=== PATIENT | male | born 1960 | race Caucasian/White ===

== ENCOUNTER 2022-07-29 15:02 | Emergency (ER) | payer OTHER, SELFPAY ==
--- NOTE | ~2022-07-29 | CT_ITS ---
EXAMINATION: CTA LE RT DATE: 07/29/2022 17:07 INDICATION: Pain, decreased pulses. TECHNIQUE: Computed tomographic angiography (CTA) of the right lower extremities was performed with 1 50 mL Omnipaque-350 intravenous contrast. Automated exposure control and iterative reconstruction rolly hnique were employed. The dose-length product was 514.04 mGy-cm. COMPARISON: None. FINDINGS: PELVIC VASCULATURE: Calcified and noncalcified distal aortic plaque. Moderate stenosis of the origin of the right common iliac artery. Occlusion of the distal right common iliac and external iliac arteries. Severe stenosis with minimal flow in the right internal iliac artery. Reconstitution of flow in the proximal right f emoral artery. RIGHT LOWER EXTREMITY VASCULATURE: Occlusion of the distal right superficial femoral artery. Reconstitution of flow at the level of the right popliteal artery. The right trifurcation is preserved. Flow noted within the peroneal artery to the level of the ankle joint. Flow present in the narrowed caliber posterior tibial and anterior tib ial arteries below the level of the ankle. ADDITIONAL FINDINGS: Incidental note of focal severe stenosis in the left external iliac artery. Enlarged prostate. Multif ocal hypodensities in the right inferior renal pole. IMPRESSION: 1. Occluded distal right common iliac and external iliac arteries with reconstitution of flow in the proximal right femoral artery. 2. Occluded distal superficial femoral artery with reconstitution of flow at the level of the poplite al artery. 3. Two vessel flow below the level of the right ankle. 4. Multiple right renal infarcts. Reviewed, dictated and finalized at location K. STACK PYTHON DEVELOPER IMPRESSION: 1. Occluded distal right common iliac and external iliac arteries with reconst itution of flow in the proximal right femoral artery. 2. Occluded distal superficial femoral artery with reconstitution of flow at th e level of the popliteal artery. 3. Two vessel flow below the level of the right ankle. 4. Multiple right renal infarcts.
[2022-07-29 15:12] VITALS: BP 126/69; PULSE 101; RESP 16; TEMP 36.6; O2SAT 100
[2022-07-29 16:30] LABS: Basophils Absolute Auto 0.1 K/mm3 (0.0-0.1); Basophils Percent Auto 0.4 % (0.2-1.2); Eosinophils Absolute Auto 0.1 K/mm3 (0-0.3); Eosinophils Percent Auto 0.4 % (0-4.4); Hematocrit 42.3 % (42.0-52.0); Hemoglobin 13.9 g/dL (14.0-18.0); Immature Granulocyte Absolute 0.07 K/mm3 (0.00-0.031); Immature Granulocyte Percent A 0.6 % (0-0.5); Lymphocytes Absolute Auto 2.17 K/mm3 (0.9-3.2); Lymphocytes Percent Auto 17.7 % (18.3-44.2); Mean Corpuscular HGB Conc 32.9 g/dl (32-36); Mean Corpuscular Hemoglobin 30.4 pg (26-34); Mean Corpuscular Volume 92.6 fl (80-100); Mean Platelet Volume 9.2 fl (7.4-10.4); Monocytes Absolute Auto 1.2 K/mm3 (0.1-0.6); Monocytes Percent Auto 9.4 % (2.6-8.5); Neutrophils Absolute Auto 8.8 K/mm3 (1.3-6.7); Neutrophils Percent Auto 71.5 % (45.5-73.1); Platelet Count Result 344 k/mm3 (150-375); Red Blood Count 4.57 M/mm3 (4.6-6.20); Red Cell Distribution Width 13.7 % (11.5-14.5); White Blood Count 12.3 K/mm3 (4.5-10.0)
[2022-07-29 16:40] LABS: Alanine Aminotransferase 65 U/L (6-50); Albumin Level 4.5 g/dL (3.5-5.1); Alkaline Phosphatase 98 U/L (38-126); Anion Gap 9 mmol/L (8-16); Aspartate Amino Transferase 45 U/L (17-59); Bilirubin,Total 0.4 mg/dL (0.2-1.3); Blood Urea Nitrogen 22 mg/dL (9-20); Calcium 9.4 mg/dL (8.4-10.2); Carbon Dioxide 24 mmol/L (22-30); Chloride 105 mmol/L (98-107); Estimated CRCL calculation 41 ml/min; Estimated Glomerular Filt Rate 51; Glucose 101 mg/dL (65-110); Partial Thromboplastin Time 27.3 SECONDS (22.3-36.8); Potassium 4.2 mmol/L (3.4-5.0); Prothrombin Time 13.1 Seconds (11.1-14.7); Sodium 138 mmol/L (137-145)
--- NOTE | 2022-07-29 17:38 | ED.LOWEXIN ---
HPI - Extremity Injury (Lower) General Chief Complaint: Extremity Injury, Lower Stated Complaint: Right Foot Pain Time Seen by Provider: 07/29/22 15:40 History of Present Illness HPI Narrative: Patient is a 61-year-old male who presents ER with pain in his right lester and foot. Sudden onset prior to arrival while he is at a local bookstore. Intense pain for approximately 45 minutes. Currently 08/08. No aggravating or alleviating factors. Denies any chest pain chest pressure. No nausea or vomiting. He did feel like his foot was numb and burning while this was occurring. Related Data Allergies Allergy/AdvReac Type Severity Reaction Status Date / Time No Known Allergies Allergy Verified 07/29/22 15:14 Review of Systems Review of Systems: All systems reviewed & are unremarkable except as noted in HPI and below Constitutional: Constitutional: Denies chills, Denies fatigue and Denies fever(s) ENT: Denies nasal congestion and Denies sore throat Cardiovascular: Cardiovascular: Denies chest pain, Denies rapid heart rate and Denies radiating jaw, neck or arm pain Respiratory: Respiratory: Denies cough and Denies dyspnea Gastrointestinal: Gastrointestinal: Denies abdominal pain, Denies nausea and Denies vomiting Musculoskeletal: Musculoskeletal: Denies arthralgias and Denies joint swelling Comments: Right foot and lester pain. 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 HEAD: Normocephalic, atraumatic. ENT: Mucous membranes moist. CHEST: Clear to auscultation. No respiratory distress. HEART: Regular rate and rhythm. Difficulty dopplering pulses to the posterior tibial and dorsalis pedis vessels right foot. Dopplerable PT/DP in LLE. ABDOMEN: Soft, nontender, nondistended. EXTREMITIES: Normal range of motion. No edema. Right foot cool with no nailbeds. Missing fifth digit on the right foot due to amputation. SKIN: Warm, dry, no rash. NEURO: Alert and oriented x3. PSYCH: Normal mood and affect. Course Course Emergency Course: Patient with recurrence of pain after CTA. Still unable to Doppler pulses. Discussed case with vascular at [facility] but there are no beds. Discussed with [facility] ER and patient has been accepted by Dr. Enriquez, transfer line had spoken with vascular surgery [place] gotten acceptance. Patient being started on heparin. Vital Signs Vital signs: Vital Signs Temperature 97.9 F 07/29/22 15:12 Pulse Rate 101 H 07/29/22 15:12 Respiratory Rate 16 07/29/22 15:12 Blood Pressure 126/69 07/29/22 15:12 Pulse Oximetry 100 07/29/22 15:12 Oxygen Delivery Room Air 07/29/22 15:12 Temperature 97.9 F 07/29/22 15:12 Pulse Rate 101 H 07/29/22 15:12 Respiratory Rate 16 07/29/22 15:12 Blood Pressure 126/69 07/29/22 15:12 Pulse Oximetry 100 07/29/22 15:12 Oxygen Delivery Room Air 07/29/22 15:12 MDM - Extremity Injury (Lower) Lab Data 07/29/22 16:23 07/29/22 16:23 Labs: Lab Results 07/29/22 07/29/22 07/29/22 Range/Units 16:23 16:23 16:23 WBC 12.3 H (4.5-10.0) K/mm3 RBC 4.57 L (4.6-6.20) M/mm3 Hgb 13.9 L (14.0-18.0) g/dL Hct 42.3 (42.0-52.0) % MCV 92.6 (80-100) fl MCH 30.4 (26-34) pg MCHC 32.9 (32-36) g/dl RDW 13.7 (11.5-14.5) % Plt Count 344 (150-375) k/mm3 MPV 9.2 (7.4-10.4) fl Immature Gran % (Auto) 0.6 H (0-0.5) % Neut % (Auto) 71.5
--- NOTE | 2022-07-29 18:38 | ECG_ITS ---
Measurements Intervals Lissie Rate: 121 P: 74 VT: 153 QRS: 79 QRSD: 89 T: 79 QT: 297 QTc: 422 Interpretive Statements SINUS TACHYCARDIA BORDERLINE R WAVE PROGRESSION, ANTERIOR LEADS NONSPECIFIC T-WAVE ABNORMALITY- INF/LAT LEADS BASELINE WANDER- II, III ABNORMAL ECG NO PREVIOUS ECG AVAILABLE FOR COMPARISON Electronically Signed On 07-30-2022 7:45:26 GRINDING AND SPRAYING SUPERVISOR by Sahil Ocampo D.O.
[2022-07-29 19:00] VITALS: BP 110/74; RESP 16
[2022-07-29] MEDS: HEPARIN SODIUM 5,000 UNITS/ML VIAL 5000 UNITS IV PUSH (19:09)
[2022-07-29] MEDS: HEPARIN SOD/D5W 100 UNITS/ML 25,000 UNITS/250 ML BAG 11 UNITS IV CONT (19:11)
== END 2022-07-29 19:42 | disposition short-term general hospital (02) ==
PROVIDERS: Emergency Provider Emergency Medicine; PCP Internal Medicine
DX: I74.5 Embolism and thrombosis of iliac artery (principal); I74.3 Embolism and thrombosis of arteries of the lower extremities; N28.0 Ischemia and infarction of kidney; I10 Essential (primary) hypertension; Z87.891 Personal history of nicotine dependence; R00.0 Tachycardia, unspecified; R94.31 Abnormal electrocardiogram [ECG] [EKG]
CPT/HCPCS: 36415; 73706; 80053; 85025; 85610; 85730; 93005; 96365; 99285; J1644; Q9967

== ENCOUNTER 2025-07-16 13:33 | Outpatient (CLI) | payer MEDICARE, SELFPAY ==
--- NOTE | ~2025-07-16 | PE_ITS ---
EXAMINATION: PET_PETPSMAST_PT DATE: 07/16/2025 15:44 INDICATION: Prostate cancer TECHNIQUE: 4.891 mCi of Illucix Ga-[id number]) was administered i.v. Low dose computed tomography (CT) images were acquired from the base of the brain to the base of the brain to the proximal thighs for attenuation correction and anatomic localization. Positron emission tomography (PET) images were acquired in the same distribution beginning 66 minutes after injection. Images including fused PET/CT images were reconstructed in axial, coronal, and sagittal planes. Automated exposure control technique was employed. The dose-length product was 822.44mGy-cm. COMPARISON: None FINDINGS: Head/neck: Typical pattern of symmetric physiologic increased activity in the lacrimal, parotid and submandibular glands as well as along the mucosa of the nasal and oral cavities, pharynx and hypopharynx. No pathologically enlarged cervical lymphadenopathy or suspicious foci of increased uptake in the visualized head or neck. Chest: Mild upper lung predominant emphysema with moderate biapical pleural-parenchymal scarring. Mild discoid atelectasis at the basilar segments of the bilateral lower lobes. No suspicious pulmonary nodules, pneumonia, pulmonary edema or pleural effusion. Heart size is normal. No pericardial effusion. Thoracic aorta is normal in caliber. No pathologically enlarged or PSMA avid thoracic lymphadenopathy. Abdomen/pelvis/proximal thighs: Physiologic renal accumulation and excretion of activity in the kidneys, bladder and along portions of ureters. Prostatomegaly measuring 4.7 x 4.0 cm with heterogeneous abnormal PSMA activity with the 3 most intense foci with maximal SUV of 14.3 on the right, 12.9 anteriorly and 14.4 on the left consistent with primary prostate cancer. Photopenic defects associated with a couple low- attenuation left renal cysts the largest measuring 2.3 cm. Normal degree and slightly heterogenous pattern of increased uptake throughout the liver and spleen without radiologic correlate or dominant PSMA avid lesion. The gallbladder, pancreas and bilateral adrenal glands are normal. Moderate uptake scattered throughout the bowels with typical duodenal and proximal jejunal predominance and without radiologic correlate, also likely physiologic. Appendix is normal. Scattered diverticula along the descending and sigmoid colon without adjacent from trace stranding to suggest diverticulitis. Endovascular stenting of the bilateral common and external iliac arteries. There are couple subcentimeter bilateral obturator lymph nodes positioned posterior to the common iliac veins with mild uptake with maximal SUV of 4.5 on the left and 3.5 on the right which are suspicious for metastatic disease. No other abnormal foci of inc reased uptake or pathologically enlarged lymphadenopathy in the abdomen, pelvis or proximal thighs. Musculoskeletal: Small focus of mild uptake with maximal SUV of 2.3 cm with a linear focus of sclerosis extending across the lateral right seventh rib. Second subcentimeter focus of increased uptake with maximal SUV of 5.5 without radiologic correlate on CT at the right atrium. No other suspicious lytic, blastic or abnormally PSMA avid bone lesions. IMPRESSION: 1. Prominent heterogeneous activity throughout the enlarged prostate consistent with primary prostate cancer. 2. Abnormal increased activity within a couple normal-sized subcentimeter bilateral obturator lymph nodes suspicious for early metastatic disease. 3. Small focus of mild bone uptake in the right atrium and the right ninth rib the former without radiologic correlate, and the latter with small linear sclerosis which are also suspicious for early osseous metastatic disease. Reviewed, dictated and finalized at location A. [employer] IMPRESSION: 1. Prominent heterogeneous activity throughout the enlarged prostate consistent with primary prostate cancer. 2. Abnormal increased activity within a couple normal-sized subcentimeter bilat eral obturator lymph nodes suspicious for early metastatic disease. 3. Small focus of mild bone uptake in the right atrium and the right ninth rib the former without radiologic correlate, and the latter with small linear scler osis which are also suspicious for early osseous metastatic disease.
--- OUTSIDE RECORDS SUMMARY | 2025-07-16 14:32 | XMS_ITS | Encounter Summary ---
Author Organization [facility] Healthcare Address [address] [place] [address] Care Team Providers Care Funeral Service Manager Name Role Phone Owen Rodgers MD Primary Care Provider Sondra Barrios MD Unavailable Matty Badillo MD Unavailable [phone] Encounter Details Date Type Department Care Team (Late st Contact Info) Description 07/29/2022 Documentation [facility] [address] [place] [address] Lee Talley RN Social History Tobacco Use Types Packs/Day Years Used Date Smoking Tobacco: Former Cigarettes Alcohol Use Standard Drinks/Week Comments Not Asked 0 (1 standard drink = 0.6 oz pur e alcohol) former Sex and Gender Information Value Date Recorded Sex Assigned at Not on file 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 Pt must be afebrile for 24 hr without antipyretics AND clinically improving. IP to discuss recovering patient. VY Guillen CIC 07/29/2022 07/29/2022 08/17/2022 3:05 AM LABORER ELECTROPLATING COVID: Recovered Comment:Added based on recent COVID infection. 08/17/2022 08/22/2022 11/15/2022 3:05 AM C DT COVID: Suspected 08/13/2023 08/13/2023 08/13/2023 6:16 AM LABORER ELECTROPLATING documented as of this encounter Care Teams Funeral Service Manager Relationship Specialty Start Date End Date Owen Rodgers MD PCP - General 08/25/20 Sondra Barrios MD Consulting Physician Vascular Surgery 08/07/22 Matty Badillo MD [id number] [place] [address] Surgeon Vascular Surgery 08/16/23 documented as of this encounter
--- OUTSIDE RECORDS SUMMARY | 2025-07-16 14:32 | XMS_ITS | Encounter Summary ---
Author Organization [facility] Address [address] [place] [address] Phone Care Team Providers Care Teacher Education Instructor Name Role Phone Owen Rodgers MD Primary Care Provider [phone] Sondra Barrios MD Unavailable Matty Badillo MD Unavailable Encounter Details Date Type Department Care Team (Late st Contact Info) Description 05/27/2025 Results Follow-Up [facility] Medicine Cardiology [address] [facility] Advanced Medicine 8th [place] [address] [place] [address] Elder Guzman MD [address] [facility] [address] [place] [address] ECG 12 lead Social History Tobacco Use Types Packs/Day Years Used Date Smoking Tobacco: Former Cigarettes Smokeless Tobacco: Never Alcohol Use Standard Drinks/Week Comments Not Asked 0 (1 standard drink = 0.6 oz pur e alcohol) former OASIS D0700: Social Isolation Answer Da te Recorded Frequency of experiencing loneliness or isolatio n Never 08/25/2023 [facility] Utilities Answer Date Recorded In the past 12 months has [employer] electric, gas, oil, or water company threatened to shut off services in your home? No 11/18/2024 Social Connection and Isolation Panel Answer Date Recorded In a typical week, how many times do you talk on the phone with family, friends, or neighbors? More than three times a week 11/18/2024 How often do you get togethe r with friends or relatives? More than three times a week 11/18/2024 How often do you attend chur ch or rastafari services? Never 11/18/2024 Do you belong to any clubs o r organizations such as latter-day groups, unions, fraternal or athletic groups, or school groups? No 11/18/2024 How often do you attend meet ings of the clubs or organizations you belong to? Never 11/18/2024 Are you , , di vorced, , never , or living with a partner? 11/18/2024 AUDIT-C Answer Date Recorded Q1: How often do you have a drink containing alc ohol? Monthly or less 11/06/2024 Q2: How many drinks containi ng alcohol do you have on a typical day when you are drinking? 1 or 2 11/06/2024 Q3: How often do you have si x or more drinks on one occasion? Never 11/06/2024 Overall Financial Resource Strain (CARDIA) Answe r Date Recorded How hard is it for you to pa y for the very basics like food, housing, medical care, and heating? Not hard at all 11/18/2024 Hunger Vital Sign Answer Date Recorded Within the past 12 months, y ou worried that your food would run out before you got the money to buy more. Never true 11/19/19 25 Within the past 12 months, t he food you bought just didn't last and you didn't have money to get more. Never true 11/18/2024 PRAPARE - Transportation Answer Date Re corded In the past 12 months, has l ack of transportation kept you from medical appointments or from getting medications? No 10/29 In the past 12 months, has l ack of transportation kept you from meetings, work, or from getting things needed for daily living? No 11/18/2024 Housing Stability Vital Sign Answer Santi e Recorded In the last 12 months, was t here a time when you were not able to pay the mortgage or rent on time? No 11/18/2024 In the past 12 months, how m any times have you moved where you were living? 0 11/18/2024 At any time in the past 12 m [facility], were you homeless or living in a assisted (including now)? No 11/18/2024 Personal Safety Answer Date Recorded Have you ever been in or are you currently in a harmful physical or emotional relationship or is someone making you feel afraid or unsafe? 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
--- OUTSIDE RECORDS SUMMARY | 2025-07-16 14:33 | XMS_ITS | Clinical Summary ---
Author Organization [facility] Address [address] [place] [address] Care Team Providers Care Inclusion Specialist Name Role Phone Owen Rodgers MD Primary Care Provider Sondra Barrois MD Unavailable Laith Tapia MD Unavailable Allergies Active Allergy Reactions Criticality Noted Date Comments Shellfish Containing Products Itching Low 2020 Medications acetaminophen (TYLENOL) 500 mg tablet Take 1 tablet (500 mg total) by mouth every 6 (six) hours as needed for pain 30 tablet 4 Active clopidogreL (PLAVIX) 75 mg tablet Take 1 tablet (75 mg total) by mouth every morning Active apixaban (ELIQUIS) 5 mg tablet Take 1 tablet (5 mg total) by mouth 2 (two) times a day Active metoprolol XL (TOPROL-XL) 25 mg extended release tablet Take 1 tablet (25 mg total) by mouth 2 (two) times a day 60 tablet 5 Active oxyCODONE (ROXICODONE) 10 mg tabletIndicatio ns:Pain Take 1 tablet (10 mg total) by mouth every 6 (six) hours as needed for pain 12 tablet 5 Active Additional Information Patient not taking.Reported on 05/27/2025 gabapentin (NEURONTIN) 600 mg tablet Take 1 tablet (600 mg total) by mouth 3 (three) times a day 90 tablet Active cyclobenzaprine (FLEXERIL) 5 mg tablet Take 1 tablet (5 mg total) by mouth 3 (three) times a day as needed for muscle spasms 30 tablet 1 5 Active Additional Information Patient not taking.Reported on 05/27/2025 atorvastatin (LIPITOR) 80 mg tablet TAKE 1 TABLET(80 MG) BY MOUTH DAILY 90 tablet 3 5 Active olmesartan (BENICAR) 5 mg tablet Take 1 tablet every day by oral route. Active aspirin 325 mg tablet Take 1 tablet (325 mg total) by mouth daily Active Active Problems Problem Noted Date Diagnosed Date Encounter for surgical after care following surgery on the circulatory system 06/19/2025 Syncope and collapse 05/27/2025 Amputation of right great toe 02/03/2025 Right foot pain 11/18/2024 Assessment & Plan (11/18/2024 4:56 PM CDT): Acute post-op pain. Will increase oxycodone and dilaudid as the current regimen is not covering his breakthrough pain. Right shoulder pain 11/17/2024 Hypotension 11/17/2024 Ulcer of toe of right foot, with necrosis of bon e 11/15/2024 Assessment & Plan (12/04/2024 3:35 AM CDT): Surgically resolved. Assessment & Plan (11/18/2024 4:54 PM CDT): POD #1 S/P partial amputation right hallux. Dry gauze and Kerlix reapplied R foot. This dressing may be left intact unless soiled or loose until his first pot-op visit as out-patient. Continue PT/OT. Use care with heel strike shoe as this could be a fall hazard and creates forefoot shear if used improperly. I have post-op visits already arranged with him. Pain of right great toe 10/23/2024 Assessment & Plan (12/23/2024 10:55 AM CDT): Monitor phantom pains in the right hallux. Could consider gabapentin or duloxetine for this. Assessment & Plan (12/04/2024 3:35 AM CDT): Continue pain medication p.r.n.. Assessment & Plan (10/23/2024 10:16 AM CDT): Improved present but should get even better once revascularization is complete. Osteomyelitis of great toe of right foot 025 Assessment & Plan (12/23/2024 10:55 AM CDT): All sutures removed right hallux. Okay to bathe and shower starting tomorrow. Monitor for any complications. Assessment & Plan (12/04/2024 3:35 AM CDT): Sutures left intact x2 more weeks. Dry dressing reapplied. He may change the dressing becomes wet or soiled. Use surgical shoe when standing or walking. Monitor for any complications. Assessment & Plan (10/23/2024 10:18 AM CDT): The plan will be for partial amputation right hallux in the weeks after his revascularization. We will monitor the site for any soft tissue infection in the meantime. CKD (chronic kidney disease) 03/27/2024 Assessment & Plan (03/27/2024 8:03 AM CDT): CKD3. Cr 1.38 on admit. Likely near baseline. - monitor Vascular occlusion 03/26/2024 Assessment & Plan (03/27/2024 9:14 AM CDT): s/p R FEA with bilateral kissing iliac stents, bilateral external iliac stents and RLE fasciotomies 07/30/22 (Dr. Barrios) c/b recurrent R TELEGRAPH OFFICE MANAGER occlusion and result ALI s/p RLE groin cutdown, thrombectomy, patch angioplasty, above knee popliteal cutdown and thrombectomy 07/30/23 (Dr. Tapia) on Plavix and Eliquis presenting to the ED after being noted to have a R SFA stent occlusion on outpatient non-invasive testing. - CTAIF showing occluded R SFA stent - continue ASA. - stop Heparin gtt. Holding Plavix and Eliquis. Resume. - Q4 hr NV checks - Veing mapping - Pain control - Plan dc home today after vein mapping. No intervention planned at this time. F/u with Dr. Tapia as outpatient. History of tobacco use 01/29/2024 History of deep vein thrombosis 01/29/2024 S/P insertion of iliac artery stent 01/29/2024 Overview (01/29/2024): 07/30/2022: R FEA with bilateral kissing iliac stents, bilateral external iliac stents and RLE fasciotomies (Dr. Barrios) Paroxysmal atrial fibrillation 2023 Assessment & Plan (2023 2:48 PM CDT): Long history of paroxysmal atrial fibrillation. MCT noted PAF with episodes of RVR and sinus tachycardia with an average heart rate of 136. His Olmesartan was therefore decreased and Metoprolol increased for hopes of better heart rate control. Today he reports significant improvement in his symptoms but still with fast resting heart rate at times and occasional palpitations. Noted to be in a fast regular rhythm today upon auscultation. Of note, he had a preserved LVEF on TTE from 07/2023. Increase metoprolol XL to 100 mg in the am and 50 mg in the pm. Decrease Olmesartan to 5 mg daily for more BP room for BB up titration. He will keep a BP and HR diary and return in 2 weeks. He should continue Eliquis. Denies any bleeding. Pneumothorax 08/14/2023 Assessment & Plan (08/15/2023 11:19 AM MARINE EXTENSION AGENT): #left pneumothorax Most likely in the setting of traumatic rib fracture, reports he fell around Given as was short of breath since. - Thoracic surgery was consulted in ED. -08/13 CTA w small to moderate L pneumothorax. S/p CT placement in ED - on RA - maintain SpO2 >92% -CT to water seal. Repeat CXR w/o pneumothorax - Chest tube pulled 08/15, f/u 1700 chest x-ray Assessment & Plan (08/15/2023 11:04 AM MARINE EXTENSION AGENT): S/p left 8Fr Thal quick placement in ER on 08/13. - No air leak following OR with Vascular Surgery; lung expanded on CXR - Thoracic Surgery to remove chest tube this morning - Will need a 2 view chest xray 4 hours after removal to monitor for re- accumulation Atrial fibrillation with RVR 08/13/2023 Assessment & Plan (03/27/2024 9:14 AM CDT): Dx in 1970s. Home regimen: toprol XL, Eliquis - continue metoprolol - Holding eliquis. Stop heparin drip an resume eliquis. Assessment & Plan (09/17/2023 4:08 PM MARINE EXTENSION AGENT): Long history of paroxysmal atrial fibrillation. Reports episodes of afib about 3 times a week in the middle of the night that are self limiting. He is in sinus tachycardia today upon examination. Reports his heart rate is always fast when he comes to visits and better controlled at home. Discussed increasing metoprolol today for better heart rate control and hopes of less breakthrough afib. Patient would like to wear a holter first and assess burden before making any changes. Discussed that we may need to decrease his Olmesartan dose to provide more blood pressure room to increase metoprolol. He was agreeable to this if Holter noted afib and fast baseline heart rate. He should continue Eliquis. Denies any bleeding. Assessment & Plan (08/15/2023 11:00 AM MARINE EXTENSION AGENT): Presented in afib with RVR. Dx in s, but does not follow with cardiology - Required dilitazem drip, now converted to NSR. - 08/14 cards consulted. Will need outpatient referral for follow up. - recommend metoprolol 12.5 mg BID for rate control - obtain TTE - 08/12 TSH WNL - Heparin gtt with plans to start Eliquis closer to [place]. Dilation of biliary tract 08/23/2022 Overview (08/23/2022): Added automatically from request for surgery [id number] COVID 08/02/2022 Assessment & Plan (08/07/2022 6:49 AM MARINE EXTENSION AGENT): Incidental finding on admission testing, asymptomatic. - Continue iso per protocol Essential hypertension 07/31/2022 Assessment & Plan (03/26/2024 3:18 PM CDT): - VS Q4 hrs and PRN - Continue home metoprolol and olmesartan as able Assessment & Plan (2023 2:45 PM CDT): Well controlled on current regimen. Increase metoprolol XL to 100 mg in the am and 50 mg in the pm for optimal heart rate control. Decrease Olmesartan to 5 mg daily for more BP room for BB up titration. He will keep a BP and HR diary and return in 2 weeks. Assessment & Plan (09/17/2023 4:05 PM MARINE EXTENSION AGENT): Well controlled on current regimen. Continue olmesartan and metoprolol XL. May need to decrease olmesartan for more blood pressure room for higher BB dose for management of afib/tachycardia. Assessment & Plan (08/07/2022 6:48 AM MARINE EXTENSION AGENT): - Cont home Norvasc, losartan and HCTZ. BP well controlled on this regimen Pancreatic mass 07/31/2022 Assessment & Plan (08/07/2022 6:48 AM MARINE EXTENSION AGENT): CT (07/29) showed dilated common bile duct 1.3 cm and dilation of pancreatic duct 6 mm main pancreatic duct with abrupt narrowing at the level of the ampulla, suggesting a possible axillary mass. CA19-9 22.9 (07/30/22) - Biliary following, appreciate recs: - MRCP (07/31) - Mild dilatation of the common bile duct and pancreatic duct, with area of transition of the CBD at the ampulla without clear underlying lesion or stone. Findings may represent sequela of ampullary stenosis or a benign stricture due to prior pancreatitis. Rec ERCP. - Biliary said they can arrange OP, they just need to know when anticoagulation can be held Anemia 07/31/2022 Assessment & Plan (08/07/2022 6:49 AM MARINE EXTENSION AGENT): Anemia 2/2 to vascular surgery. No blood products given intra-op, no pressors, and no signs of bleeding. - Daily CBC - Transfuse if Hgb<7, keep active type and screen. Femoral artery occlusion, right 07/29/2022 Assessment & Plan (08/15/2023 10:56 AM MARINE EXTENSION AGENT): Hx of R FEA with bilateral kissing iliac stents, bilateral external iliac stents and RLE fasciotomies 07/30/22 (Dr. Barrios). Taking ASA and eliquis 5mg BID at home. Presented to ED 08/13 with new onset pain starting at 0300. CTA demonstrated occlusion of proximal R TELEGRAPH OFFICE MANAGER. - 08/13 OR for R groin cutdown, thrombectomy, patch angioplasty, above knee popliteal cutdown and thrombectomy, RLE angiogram. - hep gtt restarted. Cards rec transitioning to eliquis when able - s/p plavix load, continue plavix daily and home statin. - TTF 08/15. - Continue PT/OT. Assessment & Plan (08/07/2022 6:48 AM MARINE EXTENSION AGENT): Developed acute onset right lower extremity pain on 07/29/2022, presented to OSH ED where CT was notable for femoral thrombus. Started on heparin gtt and transferred to [facility] ED were CTA showed thrombus originating in the distal infrarenal abdominal aorta which extends into the right common iliac artery and into the right external and internal iliac arteries. Admitted to ICU. - 07/30/2022 OR for embolectomy of Rt EIA, kissing iliac stent, Rt EIA stent and angioplasty, embolectomy of the right common femoral artery, 4 compartment fasciotomies, femoral endarterectomy and patch angioplasty of the right common femoral artery. - Continue Plavix. Switched eliquis to therapeutic lovenox on 08/03. - provided patient with Eliquis coupon on 08/03. - 08/05 OR with ACCS for fasciotomy closure -Island dressing on both incisions, ACCS removed on 08/06 - Echo completed while in ICU for embolic work up and notable for PFO, LEV neg fot DVT - Continue PT/OT, NV checks. - Continue Provena to groin. - Pain well controlled, increased axel on 08/07. - Patient tolerating diet without issue - DVT Ppx lovenox - Cont plavix and statin PAD (peripheral artery disease) 07/29/2022 Assessment & Plan (12/23/2024 10:56 AM CDT): Recommend walking program for exercise and collateral circulation. Follow up with Dr. Justino casper. Assessment & Plan (12/04/2024 3:34 AM CDT): Status post revascularization. Assessment & Plan (11/18/2024 4:54 PM CDT): Management per vascular surgery. Assessment & Plan (10/23/2024 10:15 AM CDT): He is awaiting revascularization of the right lower extremity. Once this is completed I will get him scheduled for partial amputation of the right hallux. Assessment & Plan (2023 2:47 PM CDT): RLE ALI s/p R FEA with bilateral kissing iliac stents, bilateral external iliac stents and RLE fasciotomies 07/30/22. Denies any claudication. Currently not taking atorvastatin and going to be running out of Plavix soon. Refill Atorvastatin and Plavix. Continue walking. Continue follow up with vascular surgery. 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 Right hallux osteomyelitis 10/30/2024 0 12/04/2024 Ulcer of toe of right foot 10/17/2024 0 12/04/2024 Assessment & Plan (10/23/2024 10:15 AM CDT): No debridement indicated today. Silver alginate and gauze dressing reapplied. Continue daily dressings as per my instructions. Monitor for any exacerbation of the wound or signs of soft tissue infection. Encounters Date Type Department Care Team Description 06/19/2025 11:45 AM MARINE EXTENSION AGENT Office Visit [facility] Medicine Vascular Surgery [facility] Medical Office Building [address] [place] [address] Melissa Gan NP Encounter for surgical aftercare following surgery on the circulatory system (Primary Dx) 06/19/2025 11:00 AM MARINE EXTENSION AGENT Ancillary Procedure [facility] Vascular Lab Vascular Surgery [address] [place] [address] [address] [place] [address] Femoral artery occlusion, right; Encounter for surgical aftercare following surgery on the circulatory system 05/27/2025 11:45 AM CDT Office Visit [facility] Cardiology [address] [place] [address] Advanced Medicine [address]th [place] [address] [place] [address] Elder Guzman MD Atrial fibrillation with RVR (HCC) (Primary Dx); Syncope and collapse 05/27/2025 Results Follow-Up [facility] Cardiology [address] [place] [address] Medicine 8th [place] [address] [place] [address] Elder Guzman MD ECG 12 lead 05/20/2025 Documentation [facility] Medicine Scheduling [address] [place] [id number] Darion Roa IM DOC from Last 3 Months Surgical History Surgery Date Site/Laterality Comments MD UNLISTED PROCEDURE PALATE UVULA Uvuloplasty - (Added by TW Conv) MD TONSILLECTOMY PRIMARY/SECONDARY <AGE 12 Tonsillectomy - (Added by TW Conv) BILATERAL TEMPOROMANDIBULAR JOINT ARTHROPLASTY Bilateral THROMBECTOMY / EMBOLECTOMY FEMORAL ARTERY 08/13/2023 Right Femoral Embolectomy/ Thrombectomy Medical History Medical History Date Comments Personal history of other di seases of the nervous system and sense organs History of sleep apnea - (Added by TW Conv) Hypertension Pancreatic mass DVT (deep venous thrombosis) sergey ateral legs and groin Family History Medical History Relation Name Comments No Known Problems Father No Known Problems Mother Migraines Other 1 Migraine Headac he - 2 children, father (Added by TW Conv) Cancer Other 2 Reported A Hist ory Of Cancer - dad had intestinal cancer and (P) uncle with leukemia (Added by TW Conv) Stroke Other 3 Cerebral Artery Occlusion With Cerebral Infarction - PGF (Added by TW Conv) Relation Name Status Comments Father Mother Other 1 Other 2 Other 3 Social History Tobacco Use Types Packs/Day Years Used Date Smoking Tobacco: Former Cigarettes Smokeless Tobacco: Never Alcohol Use Standard Drinks/Week Comments Not Asked 0 (1 standard drink = 0.6 oz pur e alcohol) former OASIS D0700: Social Isolation Answer Da te Recorded Frequency of experiencing loneliness or isolatio n Never 08/25/2023 [facility] Utilities Answer Date Recorded In the past 12 months has th e electric, gas, oil, or water Badge threatened to shut off services in your [...] often do you attend chur ch or islam services? Never 11/18/2024 Do you belong to any clubs o r organizations such as baptist groups, unions, fraternal or athletic groups, or [...] any time in the past [address] [facility], were you homeless or living in a assisted (including now)? No 11/18/2024 Personal Safety Answer Date Recorded Have you ever been in or are you currently in a harmful physical or emotional relationship or is someone making you feel afraid or unsafe? Denies 11/14/2024 Sex and Gender Information Value Date Recorded Sex Assigned at Not on file Legal Sex Male 2:05 AM MARINE EXTENSION AGENT Gender Identity Not on file Sexual Orientation Not on file Last Filed Vital Signs Vital Sign Reading Time Taken Comments Blood Pressure 132/85 06/19/2025 11:14 AM MARINE EXTENSION AGENT Pulse 80 06/19/2025 11:14 AM MARINE EXTENSION AGENT Temperature 37 C (98.6 F) 12/23/2024 10:37 AM CDT Respiratory Rate 18 11/21/2024 4:08 AM CDT Oxygen Saturation 94% 06/19/2025 11:14 AM MARINE EXTENSION AGENT Inhaled Oxygen Concentration - - Weight 76.7 kg (169 lb) 06/19/2025 11:14 AM MARINE EXTENSION AGENT Height 182.9 cm (6') 06/19/2025 11:14 AM MARINE EXTENSION AGENT Body Mass Index 22.92 06/19/2025 11:14 AM MARINE EXTENSION AGENT Plan of Treatment Health Maintenance Due Date Last Done Comments Colon Cancer Screening-Colonoscopy 1960 Depression Screening 1960 Hepatitis C Screening 1960 Prostate Cancer Screening-PSA 1960 Hepatitis B Screening 1976 Pneumococcal vaccine 65+ (1 of 2 - PCV) 1977 Zoster Vaccine (1 of 2) 2008 Well Visit 65+ 11/20/2023 Influenza Vaccine (#1) 2025 Fall Risk Assessment 11/21/2025 11/21/2024, 08/25/19 21 DTaP/Tdap/Td Vaccine (2 - Td or Tdap) 02/25/2035 02/25/2025, 02/25/2025 Abdominal Aortic Aneurysm (A AA) Screen Completed 10/14/2024, 03/26/2024, 08/13/2023, Additional history exists Medical Devices Implanted Type Area Rubber Tubing Splicer Device Identifier Shelf Expiration Date Model / Serial / Lot [employer] Patch Vascuguard 0.88cm [id number] - [id number] Implanted:Qty: 1 on 08/13/2023 by Laith Tapia MD at [facility] Graft Right: Femoral [employer] [id number] 03/13/2024 [id number] / / [id number] [employer] Perclose 6fr Vascular Closure 77424-87 - [id number] Implanted:Qty: 1 on 07/30/2022 by Sondra Barrios MD at [facility] Other - see comments Right: Groin [employer] [id number] 04/28/2024 96711-1 3 / [id number] [employer] Stent Endoprosthesis 59mm 9mm 13mm 8fr [employer]ahn 135cm Balloon Expandable Guidewire [id number] - [id number] - [id number] Implanted:Qty: 1 on 07/30/2022 by Sondra Barrios MD at [facility] Stent Right: Iliac [employer] [id number] 04/02/2025 [id number] / [id number] / [employer] Stent Endoprosthesis 39mm 9mm 13mm 8fr [employer]ahn 135cm [id number] - [id number] - [id number] Implanted:Qty: 1 on 07/30/2022 by Sondra Barrios MD at [facility] Stent Left: Iliac [employer] [id number] 05/06/2025 [id number] / [id number] / Med[employer] Protege Gps Exprt Od9 Mm Odsec.079 In L80 Mm L80 Cm Otw Delivery System Self Expand Low Profile Large Diameter Stent Biliary Nitinol Accepts .035 In Guidewire 6 Fr Introducer Sheath 7.5-8.5 Mm Lumen [id number] - [id number] Implanted:Qty: 1 on 07/30/2022 by Sondra Barrios MD at [facility] Stent Left: Iliac [employer] [id number] 09/19/2024 SERB65 - -80-8 0 / / [id number] Description:Left common exte rnal iliac [employer] Protege Gps Exprt 9mm .079in 40mm 80cm Otw Delivery System Self Hnyh00-01-16-19 - [id number] Implanted:Qty: 1 on 07/30/2022 by Sondra Barrios MD at [facility] Stent Left: Iliac [employer] [id number] 02/12/2024 SERB65 - -40-8 0 / / [id number] Description:Left common exte rnal iliac [employer] Protege Gps Exprt Od9 Mm Odsec.079 In L80 Mm L80 Cm Otw Delivery System Self Expand Low Profile Large Diameter Stent Biliary Nitinol Accepts .035 In Guidewire 6 Fr Introducer Sheath 7.5-8.5 Mm Lumen Ytyi27-48-41-17 - [id number] Implanted:Qty: 1 on 07/30/2022 by Sondra Barrios MD at [facility] Stent Right: Iliac [employer] [id number] 12/04/2024 SERB6 5- -80-8 0 / / [id number] Description:Right common ext ernal iliac [employer] Protege Gps Exprt 9mm .079in 40mm 80cm Otw Delivery System Self Adlk17-27-42-77 - [id number] Implanted:Qty: 1 on 07/30/2022 by Sondra Barrios MD at [facility] Stent Right: Iliac [employer] [id number] 05/17/2025 SERB6 5- 09-40-8 0 / / [id number] Description:Right common ext ernal iliac [employer] Everflex 6mm 200mm 120cm Self Expand Delivery Catheter System Dcg74-51-884-671 - [id number] Implanted:Qty: 1 on 08/13/2023 by Laith Tapia MD at [facility] Stent Right: Superficial Femoral Artery [employer] [id number] 10/31/2025 PRB35-0 6-200-1 20 / / [id number] [employer] Everflex 6mm 200mm 120cm Self Expand Delivery Catheter System Dax83-43-827-929 - [id number] Implanted:Qty: 1 on 08/13/2023 by Laith Tapia MD at [facility] Stent Right: Superficial Femoral Artery [employer] [id number] 12/13/2025 PRB35-0 6-200-1 20 / / [id number] [employer] Vascu-Guard 8x.8cm Peripheral Patch Vascular Bovine Pericardium Vg-0108n - [id number] Implanted:Qty: 1 on 07/30/2022 by Sondra Barrios MD at [facility] Right: Groin [employer] [id number] 03/08/2027 VG-0108 N / / [id number] [employer] Graft Patch Patch Vascular Repair 0.8x8cm 0.8x8cm Pfp0.8x8 - Sna - [id number] Implanted:Qty: 1 on 11/14/2024 by Laith Tapia MD at [facility] Right: Groin [employer] 04/20/2026 PFP0.8 X 8 / NA / [id number] Procedures Procedure Name Priority Date/Time Associated Diagnosis Comments US ARTERIAL DUPLEX LOWER EXTREMITY RIGHT LIMITED Schedule Routine, Read Routine (OP Routine) 06/19/2025 11:21 AM MARINE EXTENSION AGENT Femoral artery occlusion, right Encounter for surgical aftercare following surgery on the circulatory system US ARTERIAL DOPPLER LOWER EXTREMITY BILATERAL Schedule Routine, Read Routine (OP Routine) 06/19/2025 11:21 AM MARINE EXTENSION AGENT Femoral artery occlusion, right Encounter for surgical aftercare following surgery on the circulatory system ECG 12-LEAD Routine 05/27/2025 11:38 AM CDT Atrial fibrillation with RVR (HCC) CTA ABDOMINAL AORTA AND BILATERAL ILIOFEMORAL RUNOFF Schedule Routine, Read Routine (OP Routine) 10/14/2024 3:55 PM CDT Femoral artery occlusion, right Preoperative examination from Last 3 Months or Most Recently Relevant to Health Maintenance Results * US Arterial Duplex Lower Extremity Right Limited (06/19/2025 11:21 AM MARINE EXTENSION AGENT) Anatomical Region Laterality Modality Vascular Right Ultrasound 06/19/2025 10:4 3 AM MARINE EXTENSION AGENT Narrative 06/19/2025 3:34 PM MARINE EXTENSION AGENT [facility] - Department of Vascular Surgery, Vascular Laboratory [address] [place] [address] Lower Extremity Arterial Duplex - Bypass Graft Report Patient Name: IAIN OETRO : 1960 Study Date: 06/19/2025 10:43:54 AM Sex: M Tech: ELISA Location: [facility] Provider: LAITH TAPIA Quality: Adequate Order Provider: LAITH TAPIA PROCEDURES: Arterial Report: Right Common Femoral - BK Popliteal Bypass Graft. INDICATIONS: I70.201 Unspecified atherosclerosis of [place] arteries of extremities, right leg and Z48.812 Encounter for surgical aftercare following surgery on the circulatory system. MEASUREMENTS: Right Value Units Rt Inflow Artery 23 cm/s Rt Proximal Anastomosis 189 cm/s Rt Proximal Graft 66 cm/s Rt Mid Graft 72 cm/s Rt Distal Graft 49 cm/s Rt Distal Anastomosis 57 cm/s Rt Outflow Artery 53 cm/s Right Value Units FINDINGS: Performing Netbackup Administrator: Melissa Simon RVT. Right Leg: The inflow waveform is multiphasic. The proximal anastomosis waveform is multiphasic. The proximal graft waveform is multiphasic. The mid graft waveform is multiphasic. The distal graft waveform is multiphasic. The distal anastomosis waveform is multiphasic. The outflow waveform is multiphasic. CONCLUSIONS: 1. Duplex imaging of the right lower extremity bypass graft reveals a patent graft with no flow limiting lesions identified. Flow velocities as measured above. See Ankle/Brachial Index report. HISTORY: 11/17/2024 Partial Amputation Right Hallux (R) 11/14/24 Right iliofemoral thromboembolectomy Right profunda femoral embolectomy Right profunda to profunda bypass Right iliofemoral patch angioplasty Right greater saphenous vein harvest Right common femoral to below-knee popliteal artery bypass with reversed right greater saphenous vein Placement of incisional wound VAC measuring 13 x 3 x 1 cm. PREVIOUS STUDIES: Previous study on 12/17/2024 (Patent right lower extremity bypass graft with a 50-75% stenosis at the proximal graft level). DISCLAIMER: The study images and the final report will be retained in the patient chart by the Vascular Laboratory for the legally required time period. This chart constitutes the legal record of any testing performed. ATTESTATION: I have reviewed and interpreted the pertinent images and measurements of this study. I attest to the conclusions in the final report that is provided above. Electronically Signed By: Monster Hall MD [facility] [phone] 06/19/2025 2:29:45 PM MARINE EXTENSION AGENT Procedure Note Monster Hall MD - 06/19/2025 [facility] - Department of Vascular Surgery,Vascular Laboratory [address] [place] [id number] Lower Extremity Arterial Duplex - Bypass Graft Report Patient Name: IAIN OTERO : 1960 Study Date: 06/19/2025 10:43:54 AM Sex: M Tech: ELISA Location: [facility] Provider: LAITH TAPIA Quality: Adequate Order Provider: LAITH TAPIA PROCEDURES: Arterial Report: Right Common Femoral - BK Popliteal Bypass Graft. INDICATIONS: I70.201 Unspecified atherosclerosis of [place] arteries of extremities,right leg and Z48.812 [facility] MEASUREMENTS: Right Value Units Rt Inflow Artery 23 cm/s Rt Proximal Anastomosis 189 cm/s Rt Proximal Graft 66 cm/s Rt Mid Graft 72 cm/s Rt Distal Graft 49 cm/s Rt Distal Anastomosis 57 cm/s Rt Outflow Artery 53 cm/s Right Value Units FINDINGS: Performing Netbackup Administrator: Melissa Simon RVT. Right Leg: The inflow waveform is multiphasic. The proximal anastomosis waveform ismultiphasic. The proximal graft waveform is multiphasic. The mid graft waveform ismultiphasic. The distal graft waveform is multiphasic. The distal anastomosis waveform ismultiphasic. The outflow waveform is multiphasic. CONCLUSIONS: 1. Duplex imaging of the right lower extremity bypass graft reveals apatent graft with no flow limiting lesions identified. Flow velocities as measured above.See Ankle/Brachial Index report. HISTORY: 11/17/2024 Partial Amputation Right Hallux (R) 11/14/24 Right iliofemoral thromboembolectomy Right profunda femoral embolectomy Right profunda to profunda bypass Right iliofemoral patch angioplasty Right greater saphenous vein harvest Right common femoral to below-knee popliteal artery bypass with reversedright greater saphenous vein Placement of incisional wound VAC measuring 13 x 3 x 1 cm. PREVIOUS STUDIES: Previous study on 12/17/2024 (Patent right lower extremity bypass graftwith a 50- 75% stenosis at the proximal graft level). DISCLAIMER: The study images and the final report will be retained in the patientchart by the Vascular Laboratory for the legally required time period. This chartconstitutes the legal record of any testing performed. ATTESTATION: I have reviewed and interpreted the pertinent images and measurements ofthis study. I attest to the conclusions in the final report that is provided above. Electronically Signed By: Monster Hall MD [facility] [phone] 06/19/2025 2:29:45 PM MARINE EXTENSION AGENT Laith Tapia MD [facility] US PROCEDURES Final Re sult * US Arterial Doppler Lower Extremity Bilateral (06/19/2025 11:21 AM MARINE EXTENSION AGENT) Anatomical Region Laterality Modality Vascular Bilateral Ultrasound 06/19/2025 10:4 5 AM MARINE EXTENSION AGENT Narrative 06/19/2025 3:34 PM MARINE EXTENSION AGENT [facility] - Department of Vascular Surgery, Vascular Laboratory [address] [place] [address] Lower Extremity Arterial Doppler Report Patient Name: IAIN OTERO : 1960 Study Date: 06/19/2025 10:45:00 AM Sex: M Tech: Melissa Simon RVT Location: [facility] Provider: LAITH TAPIA Quality: Adequate Order Provider: LAITH TAPIA PROCEDURES: Arterial Report: Bilateral lower extremity arterial Doppler exam at rest. INDICATIONS: I70.201 Unspecified atherosclerosis of [place] arteries of extremities, right leg and Z48.812 Encounter for surgical aftercare following surgery on the circulatory system. MEASUREMENTS: Right Value Units Left Value Units Rt Brachial Pressure 106 mmHg Lt Brachial Pressure 111 mmHg Rt SOLIDS CONTROL TECHNICIAN Pressure 118 mmHg Lt SOLIDS CONTROL TECHNICIAN Pressure 64 mmHg Rt DPA Pressure 118 mmHg Lt DPA Pressure 66 mmHg Rt 1st Digit Pressure 69 mmHg Lt 1st Digit Pressure 27 mmHg Rt PT AUGUSTINE Resting 1.06 Lt PT AUGUSTINE Resting 0.58 Rt AT AUGUSTINE Resting 1.06 Lt AT AUGUSTINE Resting 0.59 Rt Digit/Arm Index 0.62 Lt Digit/Arm Index 0.24 Right Value Units Left Value Units FINDINGS: Performing Netbackup Administrator: Melissa Simon RVT. Left All Levels: The left common femoral, popliteal, posterior tibial and anterior tibial artery waveforms are monophasic. Right Common Femoral Artery Analysis: The common femoral artery waveform is multiphasic. Right Popliteal Artery Analysis: Popliteal artery waveform is not assessed due to h/o bypass graft. Right Posterior Tibial Artery Analysis: The posterior tibial waveform is multiphasic. Right Anterior Tibial Artery Analysis: The anterior tibial waveform is multiphasic. Right Digits: Normal right digit pressure and waveform. Left Digits: The left digit waveform is dampened. CONCLUSIONS: 1. The above listed right Ankle/Brachial Index at rest is within normal limits (for reference, normal resting AUGUSTINE is 0.90 - 1.4; AUGUSTINE >1.4 due to non-compressible arteries is not diagnostic). 2. Right Digit/Arm Index is within normal limits (for reference, normal DUSTIN is >0.6). 3. The above listed left Ankle/Brachial Index at rest is consistent with moderate peripheral arterial disease - claudication, (for reference, claudication range is 0.50 -0.89). 4. Left Digit/Arm Index is abnormal (for reference, abnormal DUSTIN is <0.6). 5. There is evidence of left leg arterial insufficiency at the level of aorta- iliac, common femoral (inflow) arteries and femoral-popliteal arteries. HISTORY: 11/17/2024 Partial Amputation Right Hallux (R) 11/14/24 Right iliofemoral thromboembolectomy Right profunda femoral embolectomy Right profunda to profunda bypass Right iliofemoral patch angioplasty Right greater saphenous vein harvest Right common femoral to below-knee popliteal artery bypass with reversed right greater saphenous vein Placement of incisional wound VAC measuring 13 x 3 x 1 cm - PREVIOUS STUDIES: Previous study on 12/17/2024 (Rt >1.0, Lt 0.67). DISCLAIMER: The study images and the final report will be retained in the patient chart by the Vascular Laboratory for the legally required time period. This chart constitutes the legal record of any testing performed. ATTESTATION: I have reviewed and interpreted the pertinent images and measurements of this study. I attest to the conclusions in the final report that is provided above. Electronically Signed By: Monster Hall MD [facility] [phone] 06/19/2025 2:29:22 PM MARINE EXTENSION AGENT Procedure Note Monster Hall MD - 06/19/2025 [facility] - Department of Vascular Surgery,Vascular Laboratory [address] [place] [address] Lower Extremity Arterial Doppler Report Patient Name: IAIN OTERO : 1960 Study Date: 06/19/2025 10:45:00 AM Sex: M Tech: Melissa Simon RVT Location: [facility] Provider: LAITH TAPIA Quality: Adequate Order Provider: LAITH TAPIA PROCEDURES: Arterial Report: Bilateral lower extremity arterial Doppler exam at rest. INDICATIONS: I70.201 Unspecified atherosclerosis of [place] arteries of extremities,right leg and Z48.812 Encounter for surgical aftercare following surgery on thecirculatory system. MEASUREMENTS: Right Value Units Left Value Units Rt Brachial Pressure 106 mmHg Lt Brachial Pressure 111 mmHg Rt SOLIDS CONTROL TECHNICIAN Pressure 118 mmHg Lt SOLIDS CONTROL TECHNICIAN Pressure 64 mmHg Rt DPA Pressure 118 mmHg Lt DPA Pressure 66 mmHg Rt 1st Digit Pressure 69 mmHg Lt 1st Digit Pressure 27 mmHg Rt PT AUGUSTINE Resting 1.06 Lt PT AUGUSTINE Resting 0.58 Rt AT AUGUSTINE Resting 1.06 Lt AT AUGUSTINE Resting 0.59 Rt Digit/Arm Index 0.62 Lt Digit/Arm Index 0.24 Right Value Units Left Value Units FINDINGS: Performing Netbackup Administrator: Melissa Simon RVT. Left All Levels: The left common femoral, popliteal, posterior tibial and anterior tibialartery waveforms are monophasic. Right Common Femoral Artery Analysis: The common femoral artery waveform is multiphasic. Right Popliteal Artery Analysis: Popliteal artery waveform is not assessed due to h/o bypass graft. Right Posterior Tibial Artery Analysis: The posterior tibial waveform is multiphasic. Right Anterior Tibial Artery Analysis: The anterior tibial waveform is multiphasic. Right Digits: Normal right digit pressure and waveform. Left Digits: The left digit waveform is dampened. CONCLUSIONS: 1. The above listed right Ankle/Brachial Index at rest is within normallimits (for reference, normal resting AUGUSTINE is 0.90 - 1.4; AUGUSTINE >1.4 due tonon-compressible arteries is not diagnostic). 2. Right Digit/Arm Index is within normal limits (for reference, normalDAI is >0.6). 3. The above listed left Ankle/Brachial Index at rest is consistent withmoderate peripheral arterial disease - claudication, (for reference, claudicationrange is 0.50 -0.89). 4. Left Digit/Arm Index is abnormal (for reference, abnormal DUSTIN is<0.6). 5. There is evidence of left leg arterial insufficiency at the level ofaorta- iliac, common femoral (inflow) arteries and femoral-popliteal arteries. HISTORY: 11/17/2024 Partial Amputation Right Hallux (R) 11/14/24 Right iliofemoral thromboembolectomy Right profunda femoral embolectomy Right profunda to profunda bypass Right iliofemoral patch angioplasty Right greater saphenous vein harvest Right common femoral to below-knee popliteal artery bypass with reversedright greater saphenous vein Placement of incisional wound VAC measuring 13 x 3 x 1 cm - PREVIOUS STUDIES: Previous study on 12/17/2024 (Rt >1.0, Lt 0.67). DISCLAIMER: The study images and the final report will be retained in the patientchart by the Vascular Laboratory for the legally required time period. This chartconstitutes the legal record of any testing performed. ATTESTATION: I have reviewed and interpreted the pertinent images and measurements ofthis study. I attest to the conclusions in the final report that is provided above. Electronically Signed By: Monster Hall MD [facility] [phone] 06/19/2025 2:29:22 PM MARINE EXTENSION AGENT Laith Tapia MD IMG US PROCEDURES Final Re sult * ECG 12 lead (05/27/2025 11:38 AM CDT) Elder Guzman MD ECG ORDERABLES Edit ed Result - Final * CTA Abdominal Aorta And Bilateral Iliofemoral Runoff (10/14/2024 3:55 PM CDT) Anatomical Region Laterality Modality Body Bilateral Computed Tomogra phy 10/15/2024 10:3 5 AM CDT Impressions 10/15/2024 11:19 AM CDT 1. Right lower extremity: Extension of the right femoral artery occlusion in its distal segment. Flow reconstitution through collaterals in the right profunda artery. Unchanged occlusion of the [place] right superficial femoral and occluded segment with reconstitution at the popliteal. Three-vessel runoff. 2. Left lower extremity: Occlusion of the distal left superficial femoral artery with reconstitution at the level of popliteal. Three-vessel runoff. Dictated by: Franca Don MD The radiology attending physician has personally reviewed this study, and had reviewed and/or edited this written report and agrees with it. Electronically signed by: David Richardson M.D. Narrative 10/15/2024 11:19 AM CDT EXAMINATION: CT ANGIOGRAPHY OF THE ABDOMEN, PELVIS, AND LOWER EXTREMITIES WITH CONTRAST HISTORY: 63-year-old with occluded right superficial femoral artery stent TECHNIQUE: CT angiography of the abdomen, pelvis, and lower extremities was performed following the uneventful intravenous administration of 115 ml Optiray-350. Vascular 3D images were generated on a dedicated workstation and also reviewed. COMPARISON: CT on 03/18/2024 FINDINGS: VASCULAR FINDINGS: Abdominal Aorta and Branches: Celiac axis: no significant stenosis SMA: no significant stenosis REUBEN: no significant stenosis Right renal vessels: no significant stenosis Left renal vessels: no significant stenosis Infrarenal aorta: no significant stenosis. No aneurysm. Pelvic Vessels: R. Common iliac artery: Stented and patent R. External iliac artery: Stented and patent R. Internal iliac artery: Severe multifocal stenosis proximally with short segment occlusion and reconstitution distally L. Common iliac artery: Stented and patent L. External iliac artery: Stented and patent L. Internal iliac artery: Up to severe multifocal stenosis. Right Lower Extremity: R. Common femoral artery: Patent in the proximal portion. Occlusion in the distal segment. Flow reconstitution at the bifurcation R. Profunda femoris artery: Reconstitution through collaterals R. Superficial femoral artery: Unchanged occlusion of the [place] artery with unchanged occluded proximal stent. Thready reconstitution at the level of popliteal R. Popliteal artery: Thready but patent R. Anterior tibial artery: no significant stenosis R. Tibioperoneal trunk: no significant stenosis R. Posterior tibial artery: no significant stenosis R. Peroneal artery: Patent to ankle R. Dorsalis pedis artery: no significant stenosis R. Plantar artery: no significant stenosis Left Lower Extremity: L. Common femoral artery: Mild stenosis L. Profunda femoris artery: Mild multifocal stenosis. L. Superficial femoral artery: Patent proximally with distal occlusion, unchanged. Reconstitution at the level of popliteal L. Popliteal artery: no significant stenosis L. Anterior tibial artery: no significant stenosis L. Tibioperoneal trunk: no significant stenosis L. Posterior tibial artery: no significant stenosis L. Peroneal artery: no significant stenosis L. Dorsalis pedis artery: no significant stenosis L. Plantar artery: no significant stenosis NON-VASCULAR FINDINGS: Scarring in the imaged lung bases. Normal imaged heart. Normal arterial phase appearance of the liver. Normal spleen. Unchanged 1.3 cm left adrenal nodule given long-term stability likely represents a benign adenoma. Normal right adrenal. Normal gallbladder. Mild dilatation of the common bile duct is unchanged. No pancreatic ductal dilatation. Unchanged left renal cysts. No suspicious renal lesions. No hydronephrosis. Normal imaged bowel. Colonic diverticula without diverticulitis. No abdominopelvic adenopathy. Mild prostatomegaly. Bladder is present. No suspicious osseous lesions Procedure Note David Richardson MD - 10/15/2024 EXAMINATION: CT ANGIOGRAPHY OF THE ABDOMEN, PELVIS, AND LOWER EXTREMITIES WITH CONTRAST HISTORY: 63-year-old with occluded right superficial femoral artery stent TECHNIQUE: CT angiography of the abdomen, pelvis, and lower extremities was performed following the uneventful intravenous administration of 115 ml Optiray-350. Vascular 3D images were generated on a dedicated workstation and also reviewed. COMPARISON: CT on 03/18/2024 FINDINGS: VASCULAR FINDINGS: Abdominal Aorta and Branches: Celiac axis: no significant stenosis SMA: no significant stenosis REUBEN: no significant stenosis Right renal vessels: no significant stenosis Left renal vessels: no significant stenosis Infrarenal aorta: no significant stenosis. No aneurysm. Pelvic Vessels: R. Common iliac artery: Stented and patent R. External iliac artery: Stented and patent R. Internal iliac artery: Severe multifocal stenosis proximally with short segment occlusion and reconstitution distally L. Common iliac artery: Stented and patent L. External iliac artery: Stented and patent L. Internal iliac artery: Up to severe multifocal stenosis. Right Lower Extremity: R. Common femoral artery: Patent in the proximal portion. Occlusion in the distal segment. Flow reconstitution at the bifurcation R. Profunda femoris artery: Reconstitution through collaterals R. Superficial femoral artery: Unchanged occlusion of the [place] artery with unchanged occluded proximal stent. Thready reconstitution at the level of popliteal R. Popliteal artery: Thready but patent R. Anterior tibial artery: no significant stenosis R. Tibioperoneal trunk: no significant stenosis R. Posterior tibial artery: no significant stenosis R. Peroneal artery: Patent to ankle R. Dorsalis pedis artery: no significant stenosis R. Plantar artery: no significant stenosis Left Lower Extremity: L. Common femoral artery: Mild stenosis L. Profunda femoris artery: Mild multifocal stenosis. L. Superficial femoral artery: Patent proximally with distal occlusion, unchanged. Reconstitution at the level of popliteal L. Popliteal artery: no significant stenosis L. Anterior tibial artery: no significant stenosis L. Tibioperoneal trunk: no significant stenosis L. Posterior tibial artery: no significant stenosis L. Peroneal artery: no significant stenosis L. Dorsalis pedis artery: no significant stenosis L. Plantar artery: no significant stenosis NON-VASCULAR FINDINGS: Scarring in the imaged lung bases. Normal imaged heart. Normal arterial phase appearance of the liver. Normal spleen. Unchanged 1.3 cm left adrenal nodule given long-term stability likely represents a benign adenoma. Normal right adrenal. Normal gallbladder. Mild dilatation of the common bile duct is unchanged. No pancreatic ductal dilatation. Unchanged left renal cysts. No suspicious renal lesions. No hydronephrosis. Normal imaged bowel. Colonic diverticula without diverticulitis. No abdominopelvic adenopathy. Mild prostatomegaly. Bladder is present. No suspicious osseous lesions IMPRESSION: 1. Right lower extremity: Extension of the right femoral artery occlusion in its distal segment. Flow reconstitution through collaterals in the right profunda artery. Unchanged occlusion of the [place] right superficial femoral and occluded segment with reconstitution at the popliteal. Three-vessel runoff. 2. Left lower extremity: Occlusion of the distal left superficial femoral artery with reconstitution at the level of popliteal. Three-vessel runoff. Dictated by: Franca Don MD The radiology attending physician has personally reviewed this study, and had reviewed and/or edited this written report and agrees with it. Electronically signed by: David Richardson M.D. Laith Tapia MD IMG CT PROCEDURES Final Re sult from Last 3 Months or Most Recently Relevant to Health Maintenance Insurance [facility] [place] [address] Advance Directives For more information, please contact: [phone] * Full Code (Latest Code Status on File) Date Activated Date Inactivated Comments 11/14/2024 1:33 PM 11/21/2024 5:09 PM * Full Code Date Activated Date Inactivated Comments 03/26/2024 8:41 PM 03/27/2024 5:13 PM * Full Code Date Activated Date Inactivated Comments 08/13/2023 10:12 AM 08/16/2023 9:48 PM * Full Code Date Activated Date Inactivated Comments 11/14/2022 12:24 PM 11/14/2022 7:12 PM * Full Code Date Activated Date Inactivated Comments 07/30/2022 1:57 PM 08/07/2022 6:23 PM Care Teams Inclusion Specialist Relationship Specialty Start Date End Date Owen Rodgers MD PCP - General 08/25/20 Sondra Barrios MD Consulting Physician Vascular Surgery 08/07/22 Laith Tapia MD [id number] [place] [address] Surgeon Vascular Surgery 08/16/23
== END 2025-07-16 13:34 | disposition home or self-care (01) ==
PROVIDERS: PCP Internal Medicine; Visit Provider Urology
DX: C61 Malignant neoplasm of prostate (principal)
CPT/HCPCS: 78815; A9596